=== PATIENT | male | born 1955 | race Caucasian/White ===

== ENCOUNTER 2016-09-17 00:14 | Emergency (ER) | payer OTHER ==
[~2016-09-17] VITALS: Ht 177.8 cm; Wt 100.5 kg
[2016-09-17 00:23] VITALS: Ht 177.8 cm; Wt 100.5 kg
[2016-09-17] MEDS ORDERED: MECLIZINE 12.5 MG TAB PO ONE (02:00)
[2016-09-17] MEDS ORDERED: ONDANSETRON 4 MG INJ IV STA (02:02)
[2016-09-17] MEDS ORDERED: SOD CHLORIDE 0.9% 1,000 ML IV STA (02:02)
[2016-09-17 02:59] LABS: BASOPHILS % 0.3 % (0.0-2.0); EOSINOPHILS # 0.1 10^3/ul (0.0-0.5); EOSINOPHILS % 0.9 % (0.0-7.0); HEMATOCRIT 47.5 % (42.0-52.0); LYMPHOCYTES # 0.8 10^3/ul (0.8-2.9); LYMPHOCYTES % 7.6 % (15.0-51.0); MEAN CORPUSCULAR HEMOGLOBIN 28.5 pg (29.0-33.0); MEAN CORPUSCULAR HGB CONC 33.6 g/dl (32.0-37.0); MEAN CORPUSCULAR VOLUME 84.8 fl (82.0-101.0); MEAN PLATELET VOLUME 8.3 fl (7.4-10.4); MONOCYTE # 0.5 10^3/ul (0.3-0.9); MONOCYTES % 4.3 % (0.0-11.0); NEUTROPHIL # 9.3 10^3/ul (1.6-7.5); NEUTROPHILS % 86.9 % (39.0-77.0); PLATELET COUNT 286 10^3/UL (140-440); UNCORRECTED WBC 10.7 10^3/ul (4.8-10.8); WHITE BLOOD COUNT 10.7 10^3/ul (4.8-10.8)
[2016-09-17 03:00] LABS: INR 0.98; PARTIAL THROMBOPLASTIN TIME 26.2 Sec (25.0-35.0)
[2016-09-17 03:04] LABS: CONDITION 1
[2016-09-17 03:07] LABS: POTASSIUM 3.2 mmol/L (3.5-5.1)
[2016-09-17 03:10] LABS: CREATININE 0.91 mg/dl (0.61-1.24)
[2016-09-17] MEDS ORDERED: POTASSIUM CHLORIDE (SR) 20 MEQ TAB PO ONE (03:10)
[2016-09-17 03:11] LABS: CALCIUM 9.2 mg/dl (8.4-10.2)
[2016-09-17] MEDS ORDERED: MECL12.574 PO (03:58)
--- NOTE | 2016-09-17 03:58 | ERD ---
ER Documentation Chief Complaint Date/Time DATE: 09/17/16 TIME: 03:55 Chief Complaint dizziness, headache 40 minutes ago, vomited 4x HPI This is a 61-year-old male presents to the emergency room for evaluation of dizziness which she describes as a room spinning sensation. Nausea and 2 episodes of vomiting. He also states that he had a slight headache which has resolved. The patient came to the ER for evaluation. The patient denies any chest pain or palpitations at this time. ROS All systems reviewed and are negative except as per history of present illness. Allergies Allergies: Coded Allergies: No Known Allergy (Unverified , 09/17/16) PMhx/Soc Medical and Surgical Hx: pt denies Surgical Hx Hx Cardiac Disorders: Yes (htn) Hx Alcohol Use: No Hx Substance Use: No Hx Tobacco Use: No Smoking Status: Unknown if ever smoked Physical Exam Vitals Vital Signs Date Time Temp Pulse Resp B/P Pulse Ox O2 Delivery O2 Flow Rate FiO2 09/17/16 02:23 57 18 157/93 100 Room Air 09/17/16 00:23 97.8 77 20 199/95 97 Physical Exam INITIAL VITAL SIGNS: Reviewed by me GENERAL: The patient is well developed and appropriate for usual state of health in no apparent distress HEENT: Pupils equal, round, and reactive to light. EOMI. There is no scleral icterus. NECK: C-spine is soft and supple, there is no meningismus. There is no cervical lymphadenopathy. LUNGS: Clear to auscultation bilaterally. There are no rales, wheezes or rhonchi. HEART: Regular rate and rhythm, no murmurs, clicks, rubs or gallops. ABDOMEN: Soft, non-tender, non-distended. There are bowel sounds in all four quadrants. No rebound or guarding. EXTREMITIES: There is no peripheral cyanosis or edema. No focal swelling or erythema. NEUROLOGICAL: Left-sided nonsustainable horizontal nystagmus, the patient moves all four extremities with 5/5 strength. Cranial nerves II - XII are intact. Normal gait. Alert and oriented SKIN: There is no apparent rash or petechiae. HEME/LYMPHATIC: There is no evidence of excessive bruising or lymphedema. PSYCHIATRIC: The patient does not appear anxious or depressed. Result Diagram: 09/17/166 09/17/16 0216 Results 24 hrs Laboratory Tests Test 09/17/16 02:16 Activated Partial Thromboplast Time 26.2Sec Anion Gap 16 Basophils # 0.010^3/ul Basophils % 0.3% Blood Morphology Comment Blood Urea Nitrogen 26mg/dl Calcium Level 9.2mg/dl Carbon Dioxide Level 31mmol/L Chloride Level 98mmol/L Creatinine 0.91mg/dl Eosinophils # 0.110^3/ul Eosinophils % 0.9% Glucose Level 119mg/dl Hematocrit 47.5% Hemoglobin 16.0g/dl INR International Normalized Ratio 0.98 Lymphocytes # 0.810^3/ul Lymphocytes % 7.6% Mean Corpuscular Hemoglobin 28.5pg Mean Corpuscular Hemoglobin Concent 33.6g/dl Mean Corpuscular Volume 84.8fl Mean Platelet Volume 8.3fl Monocytes # 0.510^3/ul Monocytes % 4.3% Neutrophils # 9.310^3/ul Neutrophils % 86.9% Nucleated Red Blood Cells # 0.010^3/ul Nucleated Red Blood Cells % 0.0/100WBC Platelet Count 69181^3/UL Potassium Level 3.2mmol/L Prothrombin Time 13.0Sec Prothrombin Time Ratio 1.0 Red Blood Count 5.6010^6/ul Red Cell Distribution Width 13.0% Sodium Level 142mmol/L White Blood Count 10.710^3/ul Current Medications Medications (Trade) Dose Ordered Sig/Quentin Route PRN Reason Start Time Stop Time Status Last Admin Dose Admin Meclizine HCl (Antivert) 25 mg ONCE ONCE PO 09/17/16 02:00 09/17/16 02:01 DC 09/17/16 02:15 Ondansetron HCl 4 mg 4 mg ONCE STAT IV 09/17/16 02:02 09/17/16 02:04 DC 09/17/16 02:15 Sodium Chloride (NS) 1,000 ml @ 1,000 mls/hr Q1H STAT IV 09/17/16 02:02 09/17/16 03:01 DC 09/17/16 02:15 Potassium Chloride (Klor-Con 20) 40 meq ONCE ONCE PO 09/17/16 03:10 09/17/16 03:11 DC 09/17/16 03:28 Procedures/MDM Chest X-ray 1V Interpreted by me: Soft Tissue: No acute abnormalities Bones: No acute abnormalities Mediastinum/Cardiac Silhouette/Lungs: [No acute abnormalities] EKG: Rate/Rhythm: [Normal Sinus Rhythm] QRS, ST, T-waves: [No changes consistent w/ acute ischemia] Impression: [No evidence of ischemia or arrhythmia] This 61-year-old male presents to the emergency room for evaluation of dizziness , and nausea and vomiting. When I evaluated this patient he did have a nonsustainable nystagmus. The patient was given meclizine and upon my reevaluation he states he is feeling better. This patient has no focal neurological deficits. My suspicion for intracranial hemorrhage is low at this time. The patient has a nonischemic EKG, negative chest x-ray, and lab work is all within normal limits. He will be discharged home at this time with a prescription for meclizine. He was found to have a potassium 3.2 and was given 40 mEq p.o. of potassium Departure Diagnosis: Primary Impression: Dizziness Additional Impression: Hypokalemia Condition: Stable MULU HAIRSTON DO Sep 17, 2016 03:57
[2016-09-17 04:19] VITALS: BP 139/88; PULSE 55; RESP 18; TEMP 97.8
--- NOTE | 2016-09-17 04:35 | RADRPT ---
PROCEDURE: XR Chest. CLINICAL INDICATION: Dizziness. TECHNIQUE: AP Portable chest. COMPARISON: No pertinent prior examinations were submitted for comparison. FINDINGS: Mild to moderate cardiomegaly. The lungs are clear. The osseous structures are unremarkable. IMPRESSION: No acute findings. RPTAT: HIKT .Mohinder Byrd MD, Date Time Electronically viewed and signed by .Mohinder Byrd MD, on 09/17/2016 04:34 .T/
== END 2016-09-17 04:26 | disposition home or self-care (01) ==
LOC: E/R 00:14
DX: R42 Dizziness and giddiness (principal); E87.6 Hypokalemia; R11.2 Nausea with vomiting, unspecified; I10 Essential (primary) hypertension; R40.2142 Coma scale, eyes open, spontaneous, at arrival to emergency department; R40.2252 Coma scale, best verbal response, oriented, at arrival to emergency department; R40.2362 Coma scale, best motor response, obeys commands, at arrival to emergency department
CPT/HCPCS: 71010; 80048; 85025; 85610; 85730; 93005; J2405; J7030; Z7610; 36415; 96374